=== PATIENT | female | born 2005 | race Caucasian/White ===

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

== ENCOUNTER 2025-01-24 18:19 | Emergency (ER) | payer OTHER, SELFPAY ==
[2025-01-24 18:34] VITALS: BP 125/100; PULSE 91; RESP 16; TEMP 36.9; O2SAT 100
[2025-01-24] MEDS: MORPHINE SULFATE INJ (*CRX) 10 MG/ML AMP IM (19:39)
--- NOTE | 2025-01-24 19:45 | PC.NURSE ---
pt placed on a montior prior to morphine administration.
[2025-01-24 20:09] VITALS: PULSE 66; RESP 16; O2SAT 100
--- NOTE | 2025-01-24 20:09 | PC.NURSE ---
pt is currently alert and oriented x4 30 mintues after morphine administration
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
[2025-01-24] MEDS: HYDROcodone/acetaminophen (*CRX) 5-325 MG TABLET 1 TAB PO (21:52)
[2025-01-24] MEDS: KETOROLAC (*BKC) 60 MG/2 ML VIAL IM (21:53)
[2025-01-24 22:14] VITALS: BP 107/64; PULSE 96; RESP 16; O2SAT 100
--- OUTSIDE RECORDS SUMMARY | 2025-01-25 01:12 | XMS_ITS | Clinical Summary ---
Author Organization [facility] Address [address] [place] [address] Care Team Providers Care Emergency Room Clinician Name Role Phone Octavia Moore MD Primary Care Provider [phone] Octavia Moore MD Unavailable [phone] Source Comments [facility],non-owned Affiliates and Associated Physician Practices is amultiple site organization consisting of ambulatory clinics and hospital sitesin [place], [place], [place] and [place]. This disclosure is being madepursuant to the Care Everywhere program and may not contain all information available regarding this patient. Last updated 17.[facility] [place] Allergies No known active allergies Medications * This document contains information received from the source organization and may not represent a complete record from that organization. * Be aware that medications may not be up to date on this document. Alwaysverify current medications with the patient. riboflavin 100 MG tablet Take 2 (two) tablets by mouth 2 times daily 120 tablet 1 Active Additional Information Patient taking differently:200 mg Oral 2 TIMES DAILY,Taking once daily, Reported on 01/14/2022 magnesium 30 MG tablet Take 1 (one) tablet by mouth once daily Active SUMAtriptan (Imitrex) 25 MG tablet Take 1 tab by mouth once at first sign of migraine. May repeat one time after 2 hours if needed. 9 tablet 3 Active sertraline (Zoloft) 50 MG tablet Take 1 (one) tablet by mouth once daily 30 tablet 8 4 Active Active Problems Patient Care Coordination No te Formatting of this note migh t be different from the original. Do you have any cultural preferences or concerns? No 01/23/21 Problem Noted Date Diagnosed Date Numbness 01/07/2023 Assessment & Plan (01/07/2023 3:59 PM CDT): Joanna Nelson is a 17 year old 4 month old with a history of numbness without tingling to arm when turns head to that side. The sensation is very brief, 1-2 seconds without any residual symptoms. She also has single periodic twitches to an arm, a leg muscle, a hand. This occurs a few times a week. Her third concern is decreased distance vision. PLAN: Referral to physical therapy for increased tension in shoulder and neck To see eye doctor in the few weeks for vision issues. Continue to track numbness and twitching events and update after complete 8 sessions of PT. Family to call with an update. Plan a return vision 2-3 months. Generalized anxiety disorder with panic attacks 06/22/2022 Assessment & Plan (07/20/2022 4:41 PM CDT): Assessment: Patient endorsing minimal anxiety symptoms with no panic attacks occurring. Minimal mood lability and no crying. Improvement occurred upon increasing dose of sertraline to 50 mg. Plan: - Continue sertraline 50 mg daily - Encouraged scheduling with therapist for CBT - Return to adolescent clinic in 5 weeks for follow up Assessment & Plan (06/22/2022 8:30 PM CDT): Assessment: Patient endorsing more anxiety symptoms with panic attacks occurring most days of the week. Do not seem to be related to diet or meals, moreso catastrophizing with significant attachment to relationships particularly with boyfriend. Also with significant mood lability, primarily tearful and crying multiple times daily. Has some insight into these events, however unable to identify triggers or coping/grounding strategies for these events. Mood lability somewhat worse near menstrual cycle. Plan: - Increase sertraline to 50mg daily - Encouraged scheduling with therapist for CBT - Return to adolescent clinic in 1 month for follow up Concussion 01/23/2021 Assessment & Plan (08/19/2021 2:48 PM CDT): 15 year old female with concussion in November 2020. Initially had headache, fatigue, dizziness and difficulty concentrating, saw concussion clinic in February 2021 w/ plan for f/u in 1 month. Currently on riboflavin daily and naproxen as needed for headaches. Only concern at this time is feeling of falling/leaning to the left when eyes are closed. Headaches improved, only 1 per week and not as severe as a true migraine. On exam, Romberg is positive on the left. Finger to nose test showed some shakiness with left hand as compared to the right. Presentation is likely secondary to residual concussion symptoms, patient would benefit from follow up with neurology. 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 Headaches seem to be interfering with concentration as well. Plan - School 504 plan to restrict test/quiz once a day + 30 min or less homework a night - Restrict nap time to 40 min a day, can use melatonin 3 mg to help fall asleep if needed - Walk 20 min a day at moderate pace - Start Riboflavin 200 mg twice a day for next month, will assess at follow up - Naproxen 375 mg BID PRN for bad headaches. - Physical therapy referral - Return in 1 month Vasovagal symptoms and musculoskeletal chest cayetano n 02/19/2020 Assessment & Plan (02/19/2020 4:15 PM HTML DEVELOPER): Joanna is a 14 year old female who presents for symptoms of chest pain, dizziness, and palpitations. Her chest pain sounds consistent with benign musculoskeletal chest pain. I suggested that she try a course of ibuprofen for 7 days to see if this improves her pain. Her symptoms of dizziness are consistent with benign vasovagal symptoms. I suggested increasing her water intake, as well as intake of salty snacks, which should improve her symptoms, although will likely not eliminate them completely. Her symptoms of palpitations do not sound particularly concerning to me from a cardiac standpoint. Overall I believe that her heart is normal and healthy, and I have not suggested any additional cardiac testing or follow up. However, I would be happy to see her again should any questions or concerns arise. She does not require any limitations on her physical activity or any cardiac medications. Please do not hesitate to contact me if I can assist with her care in any way. Sincerely, Riaz Boateng MD Pediatric Electrophysiology Avoidant-restrictive food intake disorder (ARFID ) 12/04/2019 Assessment & Plan (08/11/2023 5:08 PM CDT): Assessment: Patient with known ARFID here for follow up. She and dad report that she has been doing well. She has been trying a larger of variety of foods by not focusing on whether or not she will like it and just trying things. She is - 1 kg from her last appointment. She had a similar drop in weight at the beginning of summer last year that recovered well with focus on snacks. She is spending a lot of time with a toddler. She feels that her dose of sertraline is appropriate and has not had significant issues with mood / anxiety attacks. Plan: - Focus on eating more as she has increased energy expenditure - Continue sertraline 50 mg - Follow up in October Assessment & Plan (01/20/2023 3:18 PM HTML DEVELOPER): Joanna presents for follow up of her ARFID - weight is up in clinic today, vital signs stable, physical exam benign - patient reports diet has been going well at home, denies food restricting, purging or excess exercising - mood has been stable, denies anxiety, recently started therapy - patient's mom would like to discuss starting Joanna on control due to patient's worsening mood before/during her menstrual cycle Plan: Joanna and dad report things have been going well at home and want to continue with current plan at this time - Continue with current meal plan regimen, 3 meals and snacks, remain hydrated. - Continue 50 mg Zoloft daily, continue with counseling services - Recommend increasing activity, discussed some options for daily exercise opportunities to help with mental health as well as pre-menstrual symptoms - Discussed hormonal control options, including risks and benefits. Joanna is not interested at this time. She reports her abdominal cramping is not detrimental, improves with Midol. Denies wanting prescription medications at this time. - Follow up in clinic in March Assessment & Plan (10/20/2022 6:51 AM CDT): Assessment: Gained weight. She is doing well with eating 3 meals a day with snack. Her mood is good. Plan: -Continue Zoloft 50 mg -Follow up on 12/09/[address] Maloney Assessment & Plan (07/20/2022 4:16 PM CDT): Assessment: Weight is stable, decreased 2 pounds and per history patient is doing well with eating 3 meals a day and is still trying a diverse diet. No current concerns regarding meals, diet, or body image. Plan: - Encouraged to continue meal plan and integrating new foods Assessment & Plan (06/22/2022 8:31 PM CDT): Assessment: Weight is stable and per history patient is doing well with eating 3 meals a day and is exploring new foods and integrating more diversity into diet. Increasing anxiety although seems unrelated to meals, diet, or body image. Plan: - See relevant problem for anxiety - Encouraged to continue meal plan as is Assessment & Plan (11/24/2021 1:45 PM CDT): Joanna is a 16 y/o female who presents for weight loss follow up. Pt has lost 1 lb since last visit. Diet has broadened in some ways, but narrowed in others. Pt reports bloating after most meals, but particularly when the meals include dairy. Mood is subjectively improved. Plan: Continue therapy for eating disorder and mood; continue Prozac 25 daily Add 1-2 tums daily for calcium supplementation Recommended visit with nutrition, patient declined. They are happy with current meal plan. Recommended reading Compassion workbook for adolescents Ordered celiac labs for bloating; ESR, TTG, IgA, Vit D, amylase, CMP, CBC Followup in 8-10 weeks Assessment & Plan (11/18/2020 10:12 AM CDT): Patient is a 15 year old female with a history of ARFID who was last seen in clinic on 08/2020. Since her last visit, patient has gained 6 lbs. Her food choices are still fairly narrow, but she continues to work on trying new foods. Anxiety seems to be well controlled at the moment without therapy and medications. She reports having adequate caloric intake, and increasing caloric intake with soccer practices. Plan: -Continue trying new foods and working on expanding food choices -Continue therapy with Latonia Posey as needed -Recommend staying hydrated and reducing stimulation for concussion recovery. Encouraged Joanna to follow up with her Band Manager if symptoms fail to improve or worsen. -Follow-up in clinic in 3 months Assessment & Plan (05/20/2020 11:36 AM CDT): Patient is a 14 year old female with a history of avoidant restrictive and anxiety food intake disorder who was last seen in clinic on 03/18/2020 and is following up in clinic for progress evaluation. Since her last visit, patient has gained weight from 50.6 kg 03/18/20 to 53.8 05/20/20. Repeat blood pressure was appropriate at 102/54. Anxiety seems to be well controlled at the moment with therapy visits as needed. Plan: -Discontinue Zoloft 25 mg as patient has declined its use -Continue therapy with Latonia Posey as needed -Follow-up in clinic in end of August (roughly 3 months) Assessment & Plan (03/18/2020 10:17 AM HTML DEVELOPER): Assessment: Joanna Nelson is 15 yr old female in Adolescent clinic for follow up for ARFID. She has been on zoloft for anxiety, decreased to 25 mg on 02/12/20. Last Adolescent clinic visit on 02/12/20 wt was 51.2 kg, today 50.6. She last saw her therapist 1 month ago, following-up as needed. Plan: - continue zoloft 25 mg - encouraged to follow-up with therapy - following with Latonia See - follow up in 6-8 weeks - labs today: UA (trace leuks, otherwise wnl) Assessment & Plan (02/12/2020 12:53 PM HTML DEVELOPER): Joanna Nelson is 15 yr old female in Adolescent clinic for follow up ARFID. She has been on zoloft for anxiety, increased to 50 mg on 12/20/19. Last Adolescent clinic visit on 12/03 wt was 50.6 kg , today 51.2. Anxiety increases with tests at school and soccer games. - decrease zoloft to 25 mg - continue therapy - following with Latonia See - follow up in one month - labs today: CMP, ESR, TSH, Vit D - start salt tabs 1 gm TID with meals Assessment & Plan (12/04/2019 2:19 PM CDT): Assessment: - Previous weight loss from 42.9 kg to 38.6 kg during last half of 13yo. Current weight is 50.6 kg (52nd percentile) - Has steadily gained weight and began menstrual periods of normal flow and regularity, despite addition of soccer to schedule - Currently no fear or anxiety about gaining weight, no body image concerns - Working with therapist about anxiety and food relationship -- seeing success - Taking Sertraline for anxiety related to school Plan: - Continue Sertraline 25mg Qday - Continue to see therapist for anxiety related to food and/or school - Continue to work on adding vegetables to diet - Keep Atarax available PRN - Follow-up with Adolescent in 8 weeks Allergic rhinitis 08/25/2012 Overview (12/06/2014): Sinusitis, chronic 08/25/2012 Overview (12/06/2014): Resolved Problems Problem Noted Date Diagnosed Date Resolved Date Left wrist injury, subsequent encounter 12/11/2021 02/11/2022 Eating disorder, not otherwise specified 04/21/2021 10/09/2022 Assessment & Plan (02/04/2022 10:06 PM HTML DEVELOPER): Joanna Nelson is a 16 year old female with eating disorder (unspecified type). Weight stable since last visit ~2 months ago. Currently taking Zoloft 25mg QD, riboflavin, and daily multivitamin. Did not take Tums for Ca supplementation due to Tums causing abdominal pain. Reports she is eating dairy again and it does not cause stomach pain and abdominal bloating. Recently had 2nd concussion and is on activity restriction now. Currently allowed 20min of walking activity. Working with PT. Quit soccer a couple of weeks ago due to concussion. Stopped going to therapy because she felt that the sessions were not beneficial and she did not like the therapist. Plan: - Continue Zoloft 25mg QD (refill sent) - F/U with neurology for concussion - F/U with adolescent medicine in 2 months (~mid-Apr 2022) Assessment & Plan (10/13/2021 3:40 PM CDT): Assessment: 15 year old female with history of restrictive intake, weight loss, and anxiety who is here today for follow up. She has been doing well with food intake and trying new foods. Dad feels she is making some progress. She is currently taking zoloft and sees a therapist. Weight today 54.6kg, BMI 20.30 (47%) which is up from her previous visit but down overall since July. Physical exam unremarkable, Joanna is alert, interactive, and appears well overall. Plan: - Continue Zoloft 25mg daily and therapist - continue working with humanities department chair and work on slowly introducing new foods. - Return in 6 weeks, sooner if any concerns. Assessment & Plan (08/19/2021 2:45 PM CDT): 15 year old female with history of restrictive intake, weight loss, and anxiety who is here today for follow up. Has been doing well with food intake and trying new foods. Dad feels she is making some progress with food chaining. Feels that her anxiety is well controlled with Zoloft. Plans to start therapy in a few weeks. Weight today 55.1 kg, BMI 21.4 (55%) which is down from previous visit in July. Physical exam unremarkable, Joanna is alert, interactive, and appears well overall. Plan: - Start therapy - Continue Zoloft 25mg daily - RD saw patient in clinic, provided new food plan recommendations - Return in 2 months, sooner if any concerns. Assessment & Plan (07/14/2021 11:39 AM CDT): Assessment: 15 year old female with history of restrictive intake, OCD, anxiety, and eating disorder not otherwise specified, who is here today for follow up. Had recent increase in restriction of intake 2 weeks ago. Joanna says it was because she was sick and did not feel well. Has since started to feel better, but intake has not improved. No compensatory behaviors endorsed. No longer washing hands frequently. Denies worsening in anxiety today. Weight today 57.9 kg, BMI 21.4 (62%) which is increased from previous visit in June. Concerns today for increase in restriction and unwillingness to try new foods. Will restart Sertraline in hopes to turn this around. Will also have nutrition see family today in clinic to provide education. Follow up in 5-6 weeks. Plan: - Will restart Sertraline 25 mg daily - Encouraged family to follow up with therapist to discuss anxiety and relationship with food - Continue with current meal plan - Will have humanities department chair see family in clinic today to provide education and reassurance Assessment & Plan (04/21/2021 4:58 PM HTML DEVELOPER): Joanna Nelson is a 15 year old female, with a previous diagnosis of restrictive ARFID,who was last seen on 03/20/20.Her weight today is 56 kg (123 lb 7.3 oz), which is unchanged from her last weight 55.8 kg (123lbs 0.3 oz). Her eating patterns are usually very rigid and comprise of processed foods, she does not enjoy eating home cooked meals as much, and requires a lot of motivation to eat, and usually only eats 10% of the food on her plate. She denies having any body image issues and does not count calories and says that she does not care about her weight.She engages in baking and spends time baking cupcakes, cookies and birthday cakes, and she says that she eats them although dad reported otherwise. She has a history of anxiety which is well controlled without medication and therapy.Her performance in school has dropped since her concussion,she still continues to struggle with Maldivian and algebra, but does well in science and cay[place] islander.She was previously started on the 504 plan after the concussion, but mentions that her teachers were not very supportive of it, which was why her grades have fallen.But she says that she is doing a lot better now since her headaches have improved. Plan : Emphasised the importance of trying a variety of foods, and taking fresh, home cooked meals over processed foods. Recommended therapy to help with her relationship with food, and her handwashing Recommended mindfulness exercises to help control her obsessive thoughts Follow up in 2 months- consider sertraline if her compulsive handwashing does not improve. Chest pain 02/12/2020 03/18/2020 Assessment & Plan (03/18/2020 10:11 AM HTML DEVELOPER): Previous chest pain resolved with ibuprofen, had normal EKG. Likely was musculoskeletal pain. No further interventions indicated at present. Assessment & Plan (02/12/2020 12:49 PM HTML DEVELOPER): Chest pain for 1 week. Localized to left chest, has been constant 7 out of 10 pain since starting. Has had shortness of breath with activity and dizziness with standing. Orthostatic vitals today by HR and BP. - EKG and CXR today - Cardiology appointment scheduled 02/15/20 - decreasing zoloft from 50 mg to 25 mg Abnormal weight loss 10/04/2019 023 Assessment & Plan (11/08/2019 4:58 PM CDT): Assessment: - Previous weight loss from 42.9 kg to 38.6 kg during last half of 13yo. Current weight is 49.4 kg (47th percentile) - Has steadily gained weight and began menstrual periods of normal flow and regularity - Currently no fear or anxiety about gaining weight, no body image concerns - Working with therapist about anxiety and food relationship -- seen success and enjoys the results she sees, feels motivated to do better as she improves - Was taking Atarax for anxiety and hunger stimulation, but has not used it since last visit due to not needing it - Agreeable to adding Sertraline for further management of anxiety related primarily to online schoolwork and home responsibilities due to maternal mental health Plan: - Begin Sertraline 25mg Qday - Continue to see therapist for anxiety related to food and/or school - continue Atarax PRN - Follow-up with Adolescent in 4 weeks Finger injury, right, initial encounter 12/01/2018 10/23/2019 Strep throat 10/12/2017 10/23/2019 Sever's apophysitis, bilateral 11/04/2015 10/23/2019 Sinusitis, chronic 09/09/2012 6 Overview (12/06/2014): GERD (gastroesophageal reflux disease) 08/25/2012 10/23/2019 Rhinosinusitis 02/09/2011 11/04/2015 Immunizations Immunization Administration Dates Next Due INFLUENZA VACCINE, TRIV. (AF LURIA, FLUZONE TRIVALENT; 6MO+) (IIV3) 02/17/2011 COVID PFIZER BIVALENT 12Y+ 30mcg/0.3ML 3 DTAP/IPV 08/26/2010 DTaP VACCINE IM (6wk-6yrs) 12/07/2006,,2005,10/29 HEP A PEDS 2 DOSE 09/21/2007,12/07/2006 HEP B VACCINE, PED/ADOL 02/24/2006,12/25,2005,08/24 HIB BOOSTER 12/07/2006,2005,2005 Human Papilloma Virus Nineva lent Vaccine 09/15/2019,01/18/2018 INFLUENZA VACCINE 02/04/2012,12/04/2008 INFLUENZA VACCINE, QUADR. (F LUZONE; FLULAVAL; FLUARIX; AFLURIA QUADRIVALENT; 6MO+), 0.5 ML (IIV4) 12/24/2022,12/16/2021,12/09/2020,01/04,01/13/2019,01/18/2018,11/12/2016 ,01/25/2014,03/27/2013 Influenza Nasal 02/04/2012,12/24/2009 MENINGOCOCCAL ACWY (MCV4P) VAC IM 11/12/2016 MMR 10/09/2009,09/14/2006 Meningococcal ACWY (Menquadfi) Vac IM 10/09/2022 Meningococcal B Recombinant 2 Dose, IM 3 PNEUMOCOCCAL CONJ, PEDS 09/14/2006,02/24,2005,10/29 PNEUMOCOCCAL PPSV23 09/16/2012,09/09/2012(Deferr ed: Other) POLIO IPV 02/24/2006,2005,2005 TDAP (7yrs+) 11/12/2016 VARICELLA 08/26/2010,12/07/2006 Family History Medical History Relation Name Comments Other Brother 9 yo was a alex ature baby Eczema Father Eating Disorders Maternal Aunt 1 Eating Disorders Maternal Aunt 2 Cancer - Prostate Maternal Grandfather an d non-hodgkins lymphoma Glaucoma Maternal Grandmother Allergic Rhinitis Mother Anxiety Disorder Mother panic attac ks Asthma Mother Other Mother Seems Hem onc w ith the diagnosis of deep tissue gyroerythria. Has been on steroids at times. Thyroid Disease Mother hypo. took m edication for a while. Hyperlipidemia Paternal Grandfather Hypertension Paternal Grandfather Cancer - Breast Paternal Grandmother Hyperlipidemia Paternal Grandmother Hypertension Paternal Grandmother Anesthesia Reaction Neg Hx Arrhthymia Neg Hx Bleeding Disorders Neg Hx Childhood Hearing Disorder Neg Hx Congenital Heart defect Neg Hx Sudd. <30 Neg Hx Relation Name Status Comments Brother Father Maternal Aunt 1 Maternal Aunt 2 Maternal Grandfather Maternal Grandmother Mother Paternal Grandfather Paternal Grandmother Social History Tobacco Use Types Packs/Day Years Used Date Smoking Tobacco: Never Passive Smoke Exposure: Never Smokeless Tobacco: Never Tobacco Cessation:Counseling Given: Not Answered PHQ-2 Answer Date Recorded PHQ2 TOTAL SCORE 0 10/09/2022 Comments No Sex and Gender Information Value Date Recorded Sex Assigned at Not on file Legal Sex Female 7:14 AM HTML DEVELOPER Gender Identity Not on file Sexual Orientation Not on file Last Filed Vital Signs Vital Sign Reading Time Taken Comments Blood Pressure 92/58 11/24/2023 2:46 PM CDT Pulse 80 10/19/2022 2:29 PM CDT Temperature 36.2 C (97.2 F) 09/14/2023 3:56 PM CDT Respiratory Rate 18 11/24/2021 7:55 AM CDT Oxygen Saturation 100% 02/07/2021 2:19 PM HTML DEVELOPER Inhaled Oxygen Concentration - - Weight 56.3 kg (124 lb 1.9 oz) 11/24/2023 2:46 P M CDT Height 164 cm (5' 4.57) 11/24/2023 2:46 PM CDT Body Mass Index 20.93 11/24/2023 2:46 PM CDT Body Mass Index Percentile 44.63% 11/24/2023 2:4 6 PM CDT Growth Chart: [facility] (Girls, 2- 20 Years) Plan of Treatment Health Maintenance Due Date Last Done Comments HIV SCREENING 2020 CHLAMYDIA/GONORRHEA SCREENING 2021 MENINGOCOCCAL (Group B) VACC INE SHARED DECISION-MAKING (2 of 2 - Bexsero SCDM 2-dose series) 04/11/2023 10/09/2022 HEPATITIS C SCREENING 08/20/2023 DEPRESSION SCREENING 03/08/2024 10/09/2022, 10/23/2019, 10/23/2019 COVID-19 VACCINE (2024-2 6 season) 2024 10/09/2022, 08/13/2020, 07/23/2020 INFLUENZA VACCINE (#1) 2024 , 12/16/2021, 12/09/2020, Additional history exists DTAP/TDAP/TD VACCINES (7 - T d or Tdap) 11/12/2026 11/12/2016, 08/26/2010, 12/07/2006, Additional history exists ZOSTER VACCINE (1 of 2) 08/25/2055 HEPATITIS B VACCINE Completed 02/24/2006, 2005, 2005, Additional history exists HIB VACCINE Completed 12/07/2006, 12/07, 2005 PNEUMOCOCCAL VACCINE Completed 09/16/2012, 09/14/2006, 02/24/2006, Additional history exists HPV VACCINE Completed 09/15/2019, 01/18/2018 MENINGOCOCCAL GROUPS A/C/Y/W VACCINE Completed 10/09/2022, 11/12/2016 Goals Goal Patient Goal Type Associated Problems Recent Progress Patient-Stated? Author Use safety retraint in car Lifestyle On track( 020 2:18 PM CDT) No Cony Kelley, RN Insurance [employer] [facility] * Guarantor: JOANNA NELSON Account Type Relation to Patient Date of Phone Billing Address Personal/Family 2005 [address] [place] [address] Care Teams Emergency Room Clinician Relationship Specialty Start Date End Date Octavia Moore MD PCP - General 04/11/09 Octavia Moore MD [address] [phone] PCP - Attributed-[employer] 11/06/22
--- OUTSIDE RECORDS SUMMARY | 2025-01-25 01:12 | XMS_ITS | Encounter Summary ---
Author Organization [facility] Health Address [address] [facility] [place] [address] Care Team Providers Care Purchasing Agent Name Role Phone Octavia Moore MD Primary Care Provider [phone] Octavia Moore MD Unavailable [phone] Sammi Maloney MD Unavailable [phone] Octavia Moore MD Unavailable [phone] Encounter Details Date Type Department Care Team (Late st Contact Info) Description 04/24/2012 [facility] Outpatient Visit CG DEFAULT [address] [place] [address] Unknown, Provider Social History Tobacco Use Types Packs/Day Years Used Date Smoking Tobacco: Never Assessed Comments Unknown Sex and Gender Information Value Date Recorded Sex Assigned at Not on file Legal Sex Female 7:14 AM QUALITY RN Gender Identity Not on file Sexual Orientation Not on file documented as of this encounter Plan of Treatment Not on file documented as of this encounter Visit Diagnoses Not on filedocumented in this encounter Additional Health Concerns Infection Onset Date Last Indicated Resolved Time COVID-19 Under Investigation 12/29/2019 12/29/2019 12/31/2019 6:23 AM CDT COVID-19 Under Investigation 11/05/2020 11/05/2020 11/15/2020 4:33 AM CDT COVID-19 Under Investigation 02/10/2022 02/10/2022 02/21/2022 4:33 AM QUALITY RN documented as of this encounter Care Teams Purchasing Agent Relationship Specialty Start Date End Date Octavia Moore MD PCP - General 04/11/09 Octavia Moore MD [address] [place] [phone] PCP - Attributed-[employer] 11/06/20 Sammi Maloney MD [address] [place] [address] PCP - Attributed-[employer] 06/06/22 3 Octavia Moore MD [address] [place] [phone] PCP - Attributed-[employer] 11/06/22 documented as of this encounter
--- OUTSIDE RECORDS SUMMARY | 2025-01-25 01:12 | XMS_ITS | Encounter Summary ---
Author Organization [facility] Health Address [address] [facility] [address] Care Team Providers Care Ex Chef Name Role Phone Octavia Moore MD Primary Care Provider [phone] Octavia Moore MD Unavailable [phone] Sammi Malonye MD Unavailable [phone] Octavia Moore MD Unavailable [phone] Encounter Details Date Type Department Care Team (Late st Contact Info) Description 03/22/2019 [facility] Outpatient Visit [facility] [address] [place] [address] Document, Scanned Social History Tobacco Use Types Packs/Day Years Used Date Smoking Tobacco: Never Smokeless Tobacco: Never Comments No Sex and Gender Information Value Date Recorded Sex Assigned at Not on file Legal Sex Female 7:14 AM CORPORATE PARALEGAL Gender Identity Not on file Sexual Orientation Not on file documented as of this encounter Plan of Treatment Not on file documented as of this encounter Goals Goal Patient Goal Type Associated Problems Recent Progress Patient-Stated? Author Use safety retraint in car Lifestyle On track( 020 2:18 PM CDT) No Cony Kelley RN documented as of this encounter Visit Diagnoses Not on filedocumented in this encounter Additional Health Concerns Infection Onset Date Last Indicated Resolved Time COVID-19 Under Investigation 12/29/2019 12/29/2019 12/31/2019 6:23 AM CDT COVID-19 Under Investigation 11/05/2020 11/05/2020 11/15/2020 4:33 AM CDT COVID-19 Under Investigation 02/10/2022 02/10/2022 02/21/2022 4:33 AM CORPORATE PARALEGAL documented as of this encounter Care Teams Ex Chef Relationship Specialty Start Date End Date Octavia Moore MD PCP - General 04/11/09 Octavia Moore MD [address] [place] [phone] PCP - Attributed-[employer] 11/06/20 Sammi Maloney MD [address] [place] [address] PCP - Attributed-[employer] 06/06/22 3 Octavia Moore MD [address] [place] [address] PCP - Attributed-[employer] 11/06/22 documented as of this encounter
--- OUTSIDE RECORDS SUMMARY | 2025-01-25 01:12 | XMS_ITS | Clinical Summary ---
Author Organization [facility] Address [address] [place] [id number] Care Team Providers Care Library Information Technician Name Role Phone Octavia Moore MD Primary Care Provider Allergies No known active allergies Social History Tobacco Use Types Packs/Day Years Used Date Smoking Tobacco: Never Assessed Comments Unknown Sex and Gender Information Value Date Recorded Sex Assigned at Not on file Legal Sex Female 12:52 PM CLOTH BOLT BANDER Gender Identity Not on file Sexual Orientation Not on file Last Filed Vital Signs Vital Sign Reading Time Taken Comments Blood Pressure 104/60 02/05/2021 1:30 PM CLOTH BOLT BANDER Pulse 81 02/05/2021 1:02 PM CLOTH BOLT BANDER Temperature 36.7 C (98.1 F) 02/05/2021 1:02 PM CLOTH BOLT BANDER Respiratory Rate 18 02/05/2021 1:02 PM CLOTH BOLT BANDER Oxygen Saturation 100% 02/05/2021 2:15 PM CLOTH BOLT BANDER Inhaled Oxygen Concentration - - Weight 54.4 kg (120 lb) 02/05/2021 1:02 PM CLOTH BOLT BANDER Height 162.6 cm (5' 4) 02/05/2021 1:02 PM CLOTH BOLT BANDER Body Mass Index 20.6 02/05/2021 1:02 PM CLOTH BOLT BANDER Body Mass Index Percentile 55.69% 02/05/2021 1:0 2 PM CLOTH BOLT BANDER Growth Chart: CDC (Girls, 2- 20 Years) Plan of Treatment Health Maintenance Due Date Last Done Comments Annual Physical 2008 Meningococcal B Vaccine (1 of 2 - Standard) 2021 Hepatitis C 08/25/2023 COVID-19 Vaccine (3 - 2024- season) 2024 08/13/2020, 07/23/2020 Influenza Adult (#1) 2024 12/09/2020, 01/05/2020, 01/13/2019, Additional history exists DTaP, Tdap and Td Vaccines (7 - Td or Tdap) 11/12/2026 11/12/2016, 08/26/2010, 12/07/2006, Additional history exists Hepatitis B Vaccines Completed 02/24/2006, 2005, 2005, Additional history exists Hepatitis A Vaccines Completed 09/21/2007, 12/08/19 07 Pneumococcal Vaccine: Pediatrics (0 to 5 Years) and At-Risk Patients (6 to 49 Years) Aged Out 09/16/2012 No longer eligible based on patient's age to complete this topic Meningococcal Vaccine Aged Out 11/12/2016 No oel cristobal eligible based on patient's age to complete this topic HPV Vaccines Completed 09/15/2019, 01/18/2018 RSV Immunizations Under 20 Months Aged Out No longer eligible based on patient's age to complete this topic Insurance [facility] Care Teams Library Information Technician Relationship Specialty Start Date End Date Octavia Moore MD PCP - General PEDIATRICS 02/05/21
--- OUTSIDE RECORDS SUMMARY | 2025-01-25 01:50 | XMS_ITS | Clinical Summary ---
Author Organization [facility] Address [address] [place] [address] Care Team Providers Care Traffic Chief Name Role Phone Octavia Moore MD Primary Care Provider [phone] Octavia Moore MD Unavailable [phone] Source Comments [facility],non-owned Affiliates and Associated Physician Practices is amultiple site organization consisting of ambulatory clinics and hospital sitesin [place], [place], [place] and [place]. This disclosure is being madepursuant to the Care Everywhere program and may not contain all information available regarding this patient. 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 Headaches [...] 02/19/2020 Assessment & Plan (02/19/2020 4:15 PM RN LACTATION): Joanna is a 14 year old female [...] October Assessment & Plan (01/20/2023 3:18 PM RN LACTATION): Joanna presents for follow up of her [...] Encouraged Joanna to follow up with her Hearing And Speech Assistant if symptoms fail to improve or worsen. [...] months) Assessment & Plan (03/18/2020 10:17 AM RN LACTATION): Assessment: Joanna Nelson is 15 yr old [...] wnl) Assessment & Plan (02/12/2020 12:53 PM RN LACTATION): Joanna Nelson is 15 yr old female [...] 10/09/2022 Assessment & Plan (02/04/2022 10:06 PM RN LACTATION): Joanna Nelson is a 16 year old [...] daily and therapist - continue working with military science instructor and work on slowly introducing new foods. [...] with current meal plan - Will have military science instructor see family in clinic today to provide education and reassurance Assessment & Plan (04/21/2021 4:58 PM RN LACTATION): Joanna Nelson is a 15 year old [...] her concussion,she still continues to struggle with Afghan and algebra, but does well in science and fijian.She was previously started on the 504 plan [...] 03/18/2020 Assessment & Plan (03/18/2020 10:11 AM RN LACTATION): Previous chest pain resolved with ibuprofen, had normal EKG. Likely was musculoskeletal pain. No further interventions indicated at present. Assessment & Plan (02/12/2020 12:49 PM RN LACTATION): Chest pain for 1 week. Localized to [...] on file Legal Sex Female 7:14 AM RN LACTATION Gender Identity Not on file Sexual Orientation Not on file Last Filed Vital Signs Vital Sign Reading Time Taken Comments Blood Pressure 92/58 11/24/2023 2:46 PM CDT Pulse 80 10/19/2022 2:29 PM CDT Temperature 36.2 C (97.2 F) 09/14/2023 3:56 PM CDT Respiratory Rate 18 11/24/2021 7:55 AM CDT Oxygen Saturation 100% 02/07/2021 2:19 PM RN LACTATION Inhaled Oxygen Concentration - - Weight 56.3 kg (124 lb 1.9 oz) 11/24/2023 2:46 P M CDT Height 164 cm (5' 4.57) 11/24/2023 2:46 PM CDT Body Mass Index 20.93 11/24/2023 2:46 PM CDT Body Mass Index Percentile 44.63% 11/24/2023 2:4 6 PM CDT Growth Chart: [facility] (Girls, 2- 20 Years) Plan of Treatment [...] CDT) No Cony Kelley, RN Insurance [employer] [facility] * Guarantor: JOANNA NELSON Account Type Relation to Patient Date of Phone Billing Address Personal/Family [address] [place] [address] Care Teams Traffic Chief Relationship Specialty Start Date End Date Octavia Moore MD PCP - General 04/11/09 Octavia Moore MD [address] [phone] PCP - Attributed-[employer] 11/06/22
--- OUTSIDE RECORDS SUMMARY | 2025-01-25 01:50 | XMS_ITS | Encounter Summary ---
Author Organization [facility] Health Address [address] [facility] [place] [address] Care Team Providers Care Consulting Database Administrator Name Role Phone Octavia Moore MD Primary Care Provider [phone] Octavia Moore MD Unavailable [phone] Sammi Maloney MD Unavailable [phone] Octavia Moore MD Unavailable [phone] Encounter Details Date Type Department Care Team (Late st Contact Info) Description 04/24/2012 [facility] Outpatient Visit CG DEFAULT [address] [place] [address] Unknown, Provider Social History Tobacco Use Types Packs/Day Years Used Date Smoking Tobacco: Never Assessed Comments Unknown Sex and Gender Information Value Date Recorded Sex Assigned at Not on file Legal Sex Female 7:14 AM MORNING SHOW HOST Gender Identity Not on file Sexual Orientation [...] Under Investigation 02/10/2022 02/10/2022 02/21/2022 4:33 AM MORNING SHOW HOST documented as of this encounter Care Teams Consulting Database Administrator Relationship Specialty Start Date End Date Octavia Moore MD PCP - General 04/11/09 Octavia Moore MD [address] [place] [phone] PCP - Attributed-[employer] 11/06/20 Sammi Maloney MD [address] [place] [address] PCP - Attributed-[employer] 06/06/22 3 Octavia Moore MD [address] [place] [phone] PCP - Attributed-[employer] 11/06/22 documented as of this encounter
--- OUTSIDE RECORDS SUMMARY | 2025-01-25 01:50 | XMS_ITS | Encounter Summary ---
Author Organization [facility] Health Address [address] [place] [address] Care Team Providers Care Midlevel Provider Name Role Phone Octavia Moore MD Primary Care Provider [phone] Octavia Moore MD Unavailable [phone] Sammi Maloney MD Unavailable [phone] Octavia Moore MD Unavailable [phone] Encounter Details Date Type Department Care Team (Late st Contact Info) Description 03/22/2019 [facility] Outpatient Visit [facility] [address] [place] [address] Document, Scanned Social History Tobacco Use Types Packs/Day Years Used Date Smoking Tobacco: Never Smokeless Tobacco: Never Comments No Sex and Gender Information Value Date Recorded Sex Assigned at Not on file Legal Sex Female 7:14 AM ENTERTAINMENT DIRECTOR Gender Identity Not on file Sexual Orientation [...] Under Investigation 02/10/2022 02/10/2022 02/21/2022 4:33 AM ENTERTAINMENT DIRECTOR documented as of this encounter Care Teams Midlevel Provider Relationship Specialty Start Date End Date Octavia Moore MD PCP - General 04/11/09 Octavia Moore MD [address] [place] [phone] PCP - Attributed-[employer] 11/06/20 Sammi Maloney MD [address] [place] [address] PCP - Attributed-[employer] 06/06/22 3 Octavia Moore MD [address] [place] [address] PCP - Attributed-[employer] 11/06/22 documented as of this encounter
== END 2025-01-24 22:16 | disposition home or self-care (01) ==
PROVIDERS: Emergency Provider Registered Nurse; PCP Pediatrics
DX: T23.252A Burn of second degree of left palm, initial encounter (principal); X10.2XXA Contact with fats and cooking oils, initial encounter; J45.909 Unspecified asthma, uncomplicated
CPT/HCPCS: 16020; 96372; 99284; A9270; J1885; J2270